=== PATIENT | female | born 1990 | race Caucasian/White ===

== ENCOUNTER → 2018-08-28 | Outpatient (CLI) | payer BC ==
[~2018-08-28] MED LIST: BCP; BUPR-472 PO; HYDR-653 PO; IBUP-136 PO; SINCALIDE 5 MCG VIAL INJ ONE; WATER FOR INJ,STERILE 20 ML 20 ML ONE; [UNRECOGNIZED DRUG - OTHER]
--- NOTE | 2018-08-28 12:38 | RADIOLOGY IMAGING REPORT ---
FACILITY: [facility] - [place] PATIENT NAME: Nikki Gordillo : 1990 MR: [id number] V: [id number] EXAM DATE: ORDERING PHYSICIAN: ZBIGNIEW CARIAS TECHNOLOGIST: Location: [facility] - [place] Patient: Nikki Gordillo : 1990 Visit/Account:[id number] Date of Sevice: 08/28/2018 HIDA W/CCK HISTORY: Abdomen pain, diarrhea TECHNIQUE: 5.7 mCi Tc99m Hepatolite was injected intravenously. Multiple sequential gamma camera renny ges of the abdomen were obtained for 24 minutes. At that time, Kinevac was injected intravenously and an additional 30 minutes of gamma camera imaging data was acquired. A computer-generated region of i nterest was placed around the gallbladder and time-activity curve for the gallbladder was derived. Th e gallbladder ejection fraction was calculated. COMPARISON: None. FINDINGS: Liver uptake and excretion: Unremarkable. Time to appearance: Bile ducts: 5 minutes. Gallbladder: 11 minutes. Duodenum: 7 minutes. Duodenal-gastric reflux / extravasation: None. Post IV Kinevac: Normal and prompt contraction of the gallbladder. Patient symptoms: None reported Ejection fraction = 54%% (normal range >35%). IMPRESSION: Normal gallbladder ejection fraction of 54% Report Dictated By: Gerri Andrews MD at 08/28/2018 12:33 PM Report E-Signed By: Gerri Andrews MD at 08/28/2018 12:34 PM WSN:[email or web address]
== END ==
LOC: NUC 08-25 02:17
PROVIDERS: ATTEND Family Medicine
DX: R10.811 Right upper quadrant abdominal tenderness (principal)
CPT/HCPCS: 78226; A9537; J2805

== ENCOUNTER → 2018-11-10 | Outpatient (CLI) | payer BC ==
[~2018-11-10] MED LIST changes: -SINCALIDE 5 MCG VIAL INJ ONE; -WATER FOR INJ,STERILE 20 ML 20 ML ONE
--- NOTE | 2018-11-10 12:09 | RADIOLOGY IMAGING REPORT ---
FACILITY: [facility] - [place] PATIENT NAME: Nikki Gordillo : 1990 MR: [id number] V: [id number] EXAM DATE: ORDERING PHYSICIAN: FRANKLYN OTERO TECHNOLOGIST: Location: [facility] - [place], [place] Patient: Nikki Gordillo : 1990 Visit/Account:[id number] Date of Sevice: 11/10/2018 PELVIC HISTORY: Pelvic pain TECHNIQUE: Transvaginal and transabdominal ultrasound pelvis. COMPARISON: None. FINDINGS: Uterus: ; 7.2 cm length x 3.4 cm AP x 4.7 cm transverse. Myometrium: Unremarkable. Endometrium: IUD appears to be well-positioned within the endometrium; double thickness 4.8 mm. Cervix: Nabothian cysts. Ovaries: Right - 3.3 x 2.5 x 2.4 cm and contains multiple follicles Left - 2.6 x 2.3 x 1.9 cm and contains multiple follicles Blood flow is documented in each ovary by duplex Doppler ultrasound. Adnexa: Grossly unremarkable. Free pelvic fluid: None. IMPRESSION: IUD appears to be well-positioned within the endometrial canal Report Dictated By: Gerri Andrews MD at 11/10/2018 12:02 PM Report E-Signed By: Gerri Andrews MD at 11/10/2018 12:05 PM WSN:[email or web address]
== END ==
LOC: US 11-03 03:01
PROVIDERS: ATTEND Physician Assistant
DX: N88.8 Other specified noninflammatory disorders of cervix uteri (principal); Z97.5 Presence of (intrauterine) contraceptive device
CPT/HCPCS: 76856